=== PATIENT | male | born 1990 | race Hispanic/Latino ===

== ENCOUNTER 2020-02-08 17:13 | Emergency (ER) | payer OTHER ==
[~2020-02-08] VITALS: Ht 170.2 cm; Wt 83.9 kg
[2020-02-08] MEDS ORDERED: RISPERDAL1 MG PO (17:57)
[2020-02-08] MEDS ORDERED: PAROXETINE HCL20 MG PO (17:58)
--- OUTSIDE RECORDS SUMMARY | 2020-02-08 18:14 | XMS ---
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 E.Jacinto VISIT COUNT (12 MO.) [address] [place] [address] Deann Dove [address] [place] [address] TOTAL 3 NOTE: Visits indicate total known visits. ED/UCC VISIT TRACKING (12 MO.) 02/08/2020 17:14 [facility] TYPE: Emergency COMPLAINT: - MEDICAL CLEARANCE 02/06/2020 17:36 [facility] [place] TYPE: Emergency DIAGNOSES: - Altered Mental Status - MUSICAL PERFORMER - Nonpsychotic mental disorder, unspecified 02/06/2020 16:02 [facility] [place] TYPE: Emergency DIAGNOSES: - Panic Attack - Nonpsychotic mental disorder, unspecified - MUSICAL PERFORMER INPATIENT VISIT TRACKING (12 MO.) No inpatient visits to display in this time frame [email or web address]
== END 2020-02-09 12:34 | disposition short-term general hospital (02) ==
LOC: ED 17:13
DX: F99 Mental disorder, not otherwise specified (principal); Z79.899 Other long term (current) drug therapy
CPT/HCPCS: 80053; 80176; 81001; 84443; 85025; 96372; 99284; G0480; J1630; Q0163; U0002

== ENCOUNTER 2022-09-09 16:08 | Emergency (ER) | payer OTHER ==
[~2022-09-09] VITALS: Ht 170.2 cm; Wt 83.9 kg
[~2022-09-09 16:08] MED LIST: PAROXETINE HCL20 MG PO; RISPERDAL1 MG PO
--- NOTE | 2022-09-11 19:02 | EKG ---
[facility] [address] [facility] [place] [address] Signed Sinus rhythm with fusion complexes Incomplete right bundle branch block Lateral infarct , age undetermined Inferior infarct , age undetermined Abnormal ECG No previous ECGs available Confirmed by MEGAN SMITH MD ([id number]) on 09/11/2022 7:02:28 PM Electronically Signed By: MEGAN SMITH MD 09/11/221901 PATIENT NAME: YVAN ARMSTRONG Electrocardiogram DATE OF : 89 PHYSICIAN: MEGAN SMITH MD REPORT #: [id number] REPORT IS CONFIDENTIAL AND NOT TO BE RELEASED WITHOUT AUTHORIZATION
== END 2022-09-13 17:13 | disposition home or self-care (01) ==
LOC: ED 16:08
DX: F20.9 Schizophrenia, unspecified (principal); R79.89 Other specified abnormal findings of blood chemistry; Z20.822 Contact with and (suspected) exposure to COVID-19
CPT/HCPCS: 36415; 80053; 80074; 81001; 83690; 84443; 85025; 96360; 99285-25; A9270; G0480; J1630; J2060; J7030; U0003